=== PATIENT | female | born 1965 | race African-American/Black ===

== ENCOUNTER 2018-07-01 09:40 | Day surgery (SDC) | payer OTHER ==
[2018-06-26 09:57] VITALS: BMI 25.0
[2018-07-01] MEDS ORDERED: LIDOCAINE HCL/PF 2% SDV 5ML VIAL ONE (10:51)
[2018-07-01 12:27] VITALS: TEMP 97.9
[2018-07-01 12:52] VITALS: BP 120/76; PULSE 61
== END 2018-07-01 12:53 | disposition home or self-care (01) ==
LOC: FASU-ENDO 09:40
PROVIDERS: ATTEND Internal Medicine Gastroenterology
PROC: 0DJD8ZZ Inspection of Lower Intestinal Tract, Via Natural or Artificial Opening Endoscopic (ICD-10-PCS; principal; 2018-07-01 11:52)
DX: Z12.11 Encounter for screening for malignant neoplasm of colon (principal); K64.2 Third degree hemorrhoids
CPT/HCPCS: 84703